=== PATIENT | male | born 1990 | race Caucasian/White ===

== ENCOUNTER 2016-05-11 10:04 | Observation (INO) | payer BC, OTHER ==
[2016-05-11] MEDS ORDERED: LEVOFLOXACIN 750MG/150ML D5W 150 ML IV ONE ×2 (10:22→10:26)
--- NOTE | 2016-05-11 10:25 | ERPHSYRPT ---
- History of Present Illness Time Seen by Provider: 05/11/16 10:23 Source: patient Exam Limitations: no limitations Patient Subjective Stated Complaint: abscess on tailbone Triage Nursing Assessment: patient has 3 cm wide by 5 cm long abscess on tailbone in crevice of cheeks on right side Physician History: abscess in mid area of tail bone for 3 days Timing/Duration: day(s) (3) Severity: moderate Associated Symptoms: denies symptoms Allergies/Adverse Reactions: No Known Drug Allergies Allergy (Unverified 05/11/16 10:21) Hx Tetanus, Diphtheria Vaccination/Date Given: No Hx Influenza Vaccination/Date Given: No Hx Pneumococcal Vaccination/Date Given: No Immunizations Up to Date: No - Review of Systems Constitutional: No Symptoms Eyes: No Symptoms Ears, Nose, & Throat: No Symptoms Respiratory: No Symptoms Skin: Cellulitis - Past Medical History Pertinent Past Medical History: No - Past Surgical History Past Surgical History: No - Social History Smoking Status: Current every day smoker Drug Use: none - Nursing Vital Signs Nursing Vital Signs: Initial Vital Signs Temperature 97.6 F Temperature Source Oral Pulse Rate 78 Respiratory Rate 20 Blood Pressure [Left Arm] 136/84 Pain Intensity 8 - Physical Exam General Appearance: no apparent distress, alert Eye Exam: PERRL/EOMI, eyes nml inspection Ears, Nose, Throat Exam: normal ENT inspection, TMs normal, pharynx normal, moist mucous membranes Neck Exam: normal inspection, non-tender, supple, full range of motion Respiratory Exam: normal breath sounds, lungs clear, No respiratory distress Cardiovascular Exam: regular rate/rhythm, normal heart sounds, normal peripheral pulses Gastrointestinal/Abdomen Exam: soft, normal bowel sounds, No tenderness, No mass Back Exam: normal inspection, normal range of motion, No CVA tenderness, No vertebral tenderness Extremity Exam: normal inspection, normal range of motion, pelvis stable Neurologic Exam: alert, oriented x 3, cooperative, normal mood/affect, nml cerebellar function, nml station & gait, sensation nml, No motor deficits Skin Exam: normal color, warm, dry, other (5x5 cms sacrococcygeal abscess ), No rash Lymphatic Exam: No adenopathy SpO2: 96 Oxygen Delivery: Room Air - Course Nursing assessment & vital signs reviewed: Yes Ordered Tests: Active Orders 24 hr Category Date Time Status IV Insertion STAT Care 05/11/16 10:22 Active BLOOD CULTURE Stat Lab 05/11/16 10:40 Received CBC W DIFF Stat Lab 05/11/16 10:30 Completed CMP Stat Lab 05/11/16 10:30 Received Transfer Order Routine Transfer 05/11/16 10:35 Ordered Medication Summary Generic Name Dose Route Start Last Admin Trade Name Gunnar PRN Reason Stop Dose Admin Levofloxacin/Dextrose 150 mls @ 100 mls/hr 05/11/16 10:22 05/11/16 10:26 Levofloxacin 750mg/150ml D5w IV 05/11/16 11:51 100 mls/hr STAT ONE Administration Discontinued Medications Generic Name Dose Route Start Last Admin Trade Name Gunnar PRN Reason Stop Dose Admin Levofloxacin/Dextrose Confirm 05/11/16 10:26 Levofloxacin 750mg/150ml D5w Administered 05/11/16 10:27 Dose 150 mls @ ud IV .STK-MED ONE Lab/Rad Data: Laboratory Result Diagrams 05/11/16 10:30 Laboratory Results 05/11/16 Range/Units 10:30 WBC 9.4 (4.0-10.5) K/mm3 RBC 4.96 (4.1-5.6) M/mm3 Hgb 14.8 (12.5-18.0) gm/dl Hct 43.1 (42-50) % MCV 86.9 (78-100) fl MCH 29.8 (26-32) pg MCHC 34.3 (32-36) g/dl RDW 13.1 (11.5-14.0) % Plt Count 194 (150-450) K/mm3 MPV 8.9 (6-9.5) fl Gran % 71.2 H (36.0-66.0) % Lymphocytes % 21.5 L (24.0-44.0) % Monocytes % 5.8 (0.0-12.0) % Eosinophils % 1.3 (0.00-5.0) % Basophils % 0.2 (0.0-0.4) % Basophils # 0.02 (0-0.4) - Progress Progress: unchanged, pain not gone completely Discussed with Dr.: Rossy South Will see patient in: hospital (observation) Counseled pt/family regarding: lab results, diagnosis, need for follow-up - Departure Time of Disposition: 10:34 Departure Disposition: Observation Clinical Impression: Pilonidal abscess of cleft Condition: Fair Critical Care Time: Yes Critical Care Time(excluding separately billable procedures): 30-74 minutes Referrals: STEVEN VALVERDE MD [Primary Care Provider] -
[2016-05-11 10:41] LABS: BASOPHIL % 0.2 % (0.0-0.4); Eosinophil % 1.3 % (0.00-5.0); Granulocytes % 71.2 % (36.0-66.0); Lymphocytes % 21.5 % (24.0-44.0); Mean Cell Volume 86.9 fl (78-100); Mean Corpuscular Hemoglobin 29.8 pg (26-32); Mean Platelet Volume 8.9 fl (6-9.5); Monocytes % 5.8 % (0.0-12.0); Platelet Count 194 K/mm3 (150-450); Red Blood Count 4.96 M/mm3 (4.1-5.6); Red Cell Distribution Width 13.1 % (11.5-14.0); White Blood Count 9.4 K/mm3 (4.0-10.5)
[2016-05-11 11:01] LABS: ALBUMIN 3.9 g/dL (3.4-5.0); ALKALINE PHOSPHATASE 91 U/L (46-116); ANION GAP 17.1 MEQ/L (5-15); BILIRUBIN,TOTAL 1.1 mg/dL (0.2-1.0); BLOOD UREA NITROGEN 14 mg/dL (9-20); CHLORIDE 105 mEq/L (98-107); Carbon Dioxide 24.6 mEq/L (21-32); Glucose 115 MG/DL (70-110); Potassium 4.1 mEq/L (3.5-5.1); SGOT/AST 18 U/L (15-37); SGPT/ALT 23 U/L (12-78); SODIUM 143 mEq/L (136-145); Total Protein 7.2 gm/dL (6.4-8.2)
[2016-05-11] MEDS ORDERED: TYLENOL 325 MG PO PRN (11:08)
[2016-05-11] MEDS ORDERED: MOTRIN 600 MG PO PRN (11:08)
[2016-05-11] MEDS ORDERED: SUBLIMAZE 100 MCG/2 ML IV ONE (13:24)
[2016-05-11] MEDS ORDERED: Zofran 4 MG/2 ML VIAL IV ONE (13:24)
[2016-05-11] MEDS ORDERED: DILAUDID 2 MG INJECTION IV ONE (13:24)
[2016-05-11] MEDS ORDERED: TORAdol 30 mg Injection IV ONE (13:24)
[2016-05-11] MEDS ORDERED: Decadron 4 MG INJ IV ONE (13:24)
[2016-05-11] MEDS ORDERED: ATROPINE SULFATE 1MG IV ONE (13:24)
[2016-05-11] MEDS ORDERED: DIPRIVAN 200 MG/20 ML IV ONE (13:24)
[2016-05-11] MEDS ORDERED: Lactated Ringers 1,000 ML IV ONE ×2 (14:14→16:29)
--- NOTE | 2016-05-11 16:09 | PCM.SSS ---
History of Present Illness - Chief Complaint Chief Complaint: cellulitis History of Present Illness: is a 25 year old male who started having buttock pain 6 days ago. He started treating with a lotion he had from a pilonidal cyst 2 years ago, but when it did not improve he came to today. They did an I&D and it has been draining somewhat, but he was in so much pain he was sent to ER and admitted for surgical I&D. No fever. sylvia po (currently NPO for surgery). - Review of Systems Respiratory: Cough (few weeks ago, resolved) Genitourinary Symptoms: Other (pain and swelling at proximal gluteal cleft) Skin: Cellulitis Psychological: Other (would really like a cigarette), No Suicidal Ideations Medications & Allergies Home Medications: Home Medication List No Reportable Medications [No Reported Medications] 05/11/16 [History Confirmed 05/11/16] Allergies/Adverse Reactions: Allergies Allergy/AdvReac Type Severity Reaction Status Date / Time No Known Drug Allergies Allergy Unverified 05/11/16 10:21 - Past Medical History Past Medical History: No Neurological History: No Pertinent History ENT History: No Pertinent History Cardiac History: No Pertinent History Respiratory History: No Pertinent History Endocrine Medical History: No Pertinent History Musculoskelatal History: No Pertinent History GI Medical History: No Pertinent History History: No Pertinent History Pyscho-Social History: No Pertinent History Male Reproductive Disorders: No Pertinent History - Past Surgical History Past Surgical History: No Neuro Surgical History: No Pertinent History Cardiac History: No Pertinent History Respiratory Surgery: No Pertinent History GI Surgical History: No Pertinent History Genitourinary Surgical Hx: No Pertinent History Musculskeletal Surgical Hx: No Pertinent History Male Surgical History: No Pertinent History Other Surgical History: pt states he has had wisdom teeth removed, this is his only surgery - Social History Smoking Status: Current every day smoker How long have you smoked: 15 yrs Exposure to second hand smoke: No Alcohol: Occasionally Drug Use: none - Physical Exam Vital Signs: Vital Signs - 24 hr Temp Pulse Resp BP BP Pulse Ox 05/11/16 15:40 97.6 F 74 18 139/82 96 05/11/16 11:31 96 05/11/16 11:09 97.6 F 74 18 139/82 97 05/11/16 11:00 96 01/28/17 10:51 96 05/11/16 10:05 97.6 F 78 20 136/84 96 General Appearance: mild distress Neurologic Exam: alert, oriented x 3, cooperative Eye Exam: eyes nml inspection Ears, Nose, Throat Exam: moist mucous membranes Neck Exam: normal inspection, non-tender, No lymphadenopathy Respiratory Exam: normal breath sounds, lungs clear, No crackles/rales, No rhonchi, No wheezing Cardiovascular Exam: regular rate/rhythm, normal heart sounds, No murmur Gastrointestinal/Abdomen Exam: soft, normal bowel sounds, No tenderness, No distention, No guarding Rectal Exam: other (superior gluteal cleft (gentle, limited exam) on the R s/p I &D, some purple discoloration, no overt induration or fluctuance, pt is very tender) Back Exam: normal inspection Extremity Exam: No pedal edema, No swelling Skin Exam: warm, dry Assessment/Plan (1) Pilonidal abscess Current Visit: Yes Status: Acute Assessment & Plan: surgery to evaluate, thank you! Likely home after I&D. Code(s): L05.01 - PILONIDAL CYST WITH ABSCESS (2) Tobacco abuse Current Visit: Yes Status: Acute Assessment & Plan: I offered nicotine patch but he defers. Code(s): Z72.0 - TOBACCO USE Hospital Summary - Hospital Course Hospital Course: Pt admitted through ER with pilonidal cyst. Surgery is consulted; if I&D done I assume he will be discharged soon after. - Vitals & Intake/Output Vital Signs: Vital Signs Temperature 97.6 F 05/11/16 15:40 Pulse Rate 74 05/11/16 15:40 Respiratory Rate 18 05/11/16 15:40 Blood Pressure 139/82 05/11/16 15:40 O2 Sat by Pulse Oximetry 96 05/11/16 15:40 Intake & Output: Intake & Output 05/09/16 05/10/16 05/11/16 05/12/16 11:59 11:59 11:59 11:59 Weight 120.656 kg 120.656 kg - Lab Result Diagrams: 05/11/16 10:30 05/11/16 10:30 - Procedures and Test Procedures and Tests throughout Hospitalization: Therapy Orders & Screens 05/11/16 12:06 PT Screen per Nursing Assess ONCE Comment: Protocol Order Physician Instructions: Greater than 3 points order PT Admission Screenin Reason For Exam: Triggered on Admission Diagnosis: cellulitis Open Wound/Cellutlitis/Pressure Ulcers: Yes Acute Fx/ORIF/Change in wt bearing status: No Severe MUSCULOSKELETAL pain: No ADL Dysfunction: No Acute CVA w/Hemiparesis/Hemiplegia: No Decreased Functional Mobility/Strength: No Sprain/Strain: No Acute Post-op Mobility Dysfunction: No Total Points: 5 Smoking Cessation Education ONCE Comment: Diagnosis: cellulitis Smoking Status: Current every day smoker How long have you smoked: 15 yrs Have you smoked in the past 12 months: Yes Approximately how many cigarettes per day: 10 Do you dip or chew tobacco: Yes - Discharge Disposition: Home, Self-Care Condition: Good Prescriptions: No Action No Reportable Medications [No Reported Medications] Follow up with: STEVEN VALVERDE MD [Primary Care Provider] - Forms: Patient Portal Information
[2016-05-11] MEDS ORDERED: BICITRA 30 ML CUP ONE (16:29)
[2016-05-11] MEDS ORDERED: Pepcid 20 MG VIAL IV ONE ×2 (16:29→16:31)
[2016-05-11] MEDS ORDERED: CEFAZOLIN 2 GM-D5W BAG** 50 ML IV ONE (16:29)
[2016-05-11] MEDS ORDERED: BICITRA 30 ML CUP PO STA (16:31)
[2016-05-11] MEDS ORDERED: Lactated Ringers 1,000 ML IV SCH (17:00)
[2016-05-11] MEDS ORDERED: FEVERALL 650 MG PR PRN (18:16)
[2016-05-11] MEDS ORDERED: Zofran 4 MG/2 ML VIAL IVIM PRN (18:18)
[2016-05-11] MEDS: Morphine PCA 1 MG/ML 30 ML IV PRN (18:26)
[2016-05-12 06:23] LABS: Mean Cell Volume 88.3 fl (78-100); Mean Corpuscular Hemoglobin 29.6 pg (26-32); Mean Platelet Volume 9.1 fl (6-9.5); Platelet Count 252 K/mm3 (150-450); Red Blood Count 4.97 M/mm3 (4.1-5.6); Red Cell Distribution Width 13.1 % (11.5-14.0); White Blood Count 11.8 K/mm3 (4.0-10.5)
[2016-05-12] MEDS: Levofloxacin 500MG/100ML D5W 100 ML IV SCH (09:59)
[2016-05-12] MEDS ORDERED: ENOXAPARIN SODIUM SQ SCH (10:00)
[2016-05-12] MEDS: NORCO 5/325 MG PO PRN ×2 (12:22→21:51)
[2016-05-12] MEDS: Morphine PCA 1 MG/ML 30 ML IV PRN (12:29)
--- NOTE | 2016-05-12 13:12 | PCM.DS ---
Discharge Summary Date of Admission: 05/11/16 11:00 Admitting Physician: BEVERLY DE LA TORRE Primary Care Provider: STEVEN VALVERDE Allergies Allergies No Known Drug Allergies Allergy (Unverified 05/11/16 10:21) Hospital Summary - Hospital Course Hospital Course: Pt feeling better, decreased pain. I&D done, packing applied so pt was kept overnight by surgery. Aniya po fine. - Vitals & Intake/Output Vital Signs: Vital Signs Temperature 98.1 F 05/12/16 12:22 Pulse Rate 62 05/12/16 07:50 Respiratory Rate 18 05/12/16 07:50 Blood Pressure 152/69 05/12/16 07:37 O2 Sat by Pulse Oximetry 97 05/12/16 12:29 Intake & Output: Intake & Output 05/10/16 05/11/16 05/12/16 05/13/16 11:59 11:59 11:59 11:59 Intake Total 1884 Output Total 500 Balance 1384 Weight 120.656 kg 120.656 kg - Lab Result Diagrams: 05/12/16 05:30 05/11/16 10:30 Lab Results-Last 24 Hrs: Lab Results-Last 24 Hours 05/12/16 Range/Units 05:30 WBC 11.8 H (4.0-10.5) K/mm3 RBC 4.97 (4.1-5.6) M/mm3 Hgb 14.7 (12.5-18.0) gm/dl Hct 43.9 (42-50) % MCV 88.3 (78-100) fl MCH 29.6 (26-32) pg MCHC 33.5 (32-36) g/dl RDW 13.1 (11.5-14.0) % Plt Count 252 (150-450) K/mm3 MPV 9.1 (6-9.5) fl Micro Results-Entire Visit: Microbiology 05/11/16 17:16 Gram Stain - Final Coccyx - Procedures and Test Procedures and Tests throughout Hospitalization: Therapy Orders & Screens 05/11/16 12:06 PT Screen per Nursing Assess ONCE Comment: Protocol Order Physician Instructions: Greater than 3 points order PT Admission Screenin Reason For Exam: Triggered on Admission Diagnosis: cellulitis Open Wound/Cellutlitis/Pressure Ulcers: Yes Acute Fx/ORIF/Change in wt bearing status: No Severe MUSCULOSKELETAL pain: No ADL Dysfunction: No Acute CVA w/Hemiparesis/Hemiplegia: No Decreased Functional Mobility/Strength: No Sprain/Strain: No Acute Post-op Mobility Dysfunction: No Total Points: 5 Smoking Cessation Education ONCE Comment: Diagnosis: cellulitis Smoking Status: Current every day smoker How long have you smoked: 15 yrs Have you smoked in the past 12 months: Yes Approximately how many cigarettes per day: 10 Do you dip or chew tobacco: Yes 05/11/16 18:11 Incentive Spirometry Assessmen TID Comment: Diagnosis: cellulitis Discharge Exam General Appearance: no apparent distress Neurologic Exam: alert, oriented x 3, cooperative Skin Exam: normal color, warm, dry Respiratory Exam: normal breath sounds, lungs clear, No wheezing Cardiovascular Exam: regular rate/rhythm, normal heart sounds Rectal Exam: other (superior gluteal cleft with minimal induration and tenderness. Packing in place with evidence of bloody and serous fluid. no erythema. Basically nttp.) Final Diagnosis/Problem List - Final Discharge Diagnosis/Problem (1) Pilonidal abscess Current Visit: Yes Status: Acute Assessment & Plan: I&D from surgery yesterday. Packing in place; surgery to re-eval today. OK to d/c from my perspective when OK with surgery. (2) Tobacco abuse Current Visit: Yes Status: Chronic Assessment & Plan: pt refusing nicotine patch. - Discharge Disposition: Home, Self-Care Condition: Good Prescriptions: No Action No Reportable Medications [No Reported Medications] Follow up with: STEVEN VALVERDE MD [Primary Care Provider] - Forms: Patient Portal Information
[2016-05-13] MEDS: NORCO 5/325 MG PO PRN ×2 (04:16→09:19)
--- NOTE | 2016-05-13 07:31 | PCM.NOTE ---
Date and Time: 05/13/16728 Subjective Assessment: patient is feeling much better today, had significant bleeding from surgical site yesterday, has improved today. his pain is controlled, overall he has no complaints Objective Exam General Appearance: no apparent distress, alert Respiratory Exam: normal breath sounds, lungs clear, No respiratory distress Cardiovascular Exam: regular rate/rhythm, normal heart sounds Gastrointestinal/Abdomen Exam: soft, No tenderness, No mass Rectal Exam: other (open area clean, signficant amount of blood in packing and dressing materials, no active bleeding) OBJECTIVE DATA Vital Signs: Vital Signs - 24 hr Temp Pulse Resp BP Pulse Ox 05/13/16 07:11 98.0 F 51 L 16 104/59 97 05/13/16 04:00 98.5 F 52 L 17 131/66 100 05/13/16 00:00 97.9 F 62 17 130/62 95 05/12/16 19:59 97.6 F 74 16 137/79 96 05/12/16 16:00 98.2 F 69 20 127/75 97 05/12/16 12:29 97 05/12/16 12:22 98.1 F 05/12/16 12:00 98.1 F 84 19 125/73 95 05/12/16 10:00 97 05/12/16 08:00 97 05/12/16 07:50 62 18 97 05/12/16 07:37 98.1 F 88 18 152/69 97 Pain Assessment - Last Documented Pain Intensity 5 Pain Scale Used [facility] Intake and Output: Intake & Output 05/10/16 05/11/16 05/12/16 05/13/16 11:59 11:59 11:59 11:59 Intake Total 1884 780 Output Total 500 Balance 1384 780 Weight 120.656 kg 120.656 kg Assessment/Plan (1) Pilonidal abscess Current Visit: Yes Status: Acute Assessment & Plan: on levaquin, will stop lovenox at this time and continue current management, patient is ambulatory so encouraged activity to prevent DVT Code(s): L05.01 - PILONIDAL CYST WITH ABSCESS
--- NOTE | 2016-05-13 09:03 | OP ---
SURGERY DATE/TIME: 05/11/20161651 PREOPERATIVE DIAGNOSIS: Pilonidal cyst disease acute exacerbation upper right. POSTOPERATIVE DIAGNOSIS: Pilonidal cyst disease acute exacerbation upper right. PROCEDURE: Excisional of pilonidal cyst disease measuring 3 x 2 inches predominantly central and right in the upper aspect of the pilonidal zone with open packing. SURGEON: Gabe Varghese M.D. ANESTHESIA: General. COMPLICATIONS: None. CONDITION: Stable. INDICATION: A 25 year-old had pilonidal cyst before and had treatment of it about two years ago, I believe complete excision. He now presents for exacerbation that has been going on and off for a month. He had it lanced at [facility] but it is still very, very painful. He cannot move or lay on it and it is still acutely inflamed. DESCRIPTION OF PROCEDURE: He was taken to surgery and laid in left lateral decubitus position. This worked out very nicely. Routine prep and drape. It was extending in the upper part of the old pilonidal zone and in the central and expansion out to the right. This was elliptically excised. Hemostasis obtained with electrocautery. Residual granulation tissue was cauterized and packed with Iodoform. Sterile dressing applied. The patient tolerated the procedure satisfactorily. Findings discussed with the family in the waiting room.
[2016-05-13] MEDS: Levofloxacin 500MG/100ML D5W 100 ML IV SCH (10:11)
[2016-05-13 12:31] VITALS: BP 134/85; PULSE 81; O2SAT 94
== END 2016-05-13 13:25 | disposition home or self-care (01) ==
LOC: ED 10:04 → MED SURG 11:00
PROVIDERS: ADMIT Family Medicine; ATTEND Family Medicine
PROC: 0HB8XZZ Excision of Buttock Skin, External Approach (ICD-10-PCS; principal; 2016-05-11)
DX: L05.01 Pilonidal cyst with abscess (principal); Z72.0 Tobacco use
CPT/HCPCS: 00300; 36000; 36415; 80053; 85025; 85027; 87040; 87070; 94762; 99140; 99284; G0378; J0461; J0690; J1100; J1170; J1650; J1885; J1956; J2270; J2405; J2704; J3010

== ENCOUNTER 2022-11-04 07:41 | Emergency (ER) | payer BC, SELFPAY ==
[2022-11-04] MEDS ORDERED: BABY ASPIRIN 81 MG CHEW PO ONE (07:54)
[2022-11-04 07:57] VITALS: O2SAT 98
[2022-11-04 07:59] VITALS: TEMP 97.5
[2022-11-04] MEDS ORDERED: BABY ASPIRIN 81 MG CHEW ONE (07:59)
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
[2022-11-04 08:05] LABS: Absolute Neutrophil Ct (ANC) 6.07 x10^3/uL (1.4-6.9); BASOPHIL % 0.7 % (0.0-0.4); Basophil (Absolute #) 0.07 x10^3/uL (0-0.4); Eosinophil % 3.2 % (0.00-5.0); Eosinophil (Absolute #) 0.31 x10^3/uL (0-0.5); Hematocrit 43.1 % (42-50); Hemoglobin 14.4 g/dL (12.5-18.0); IMMATURE GRAN # 0.05 x10^3u/L (0.00-0.03); IMMATURE GRAN % 0.5 % (0.00-0.4); Lymphocyte (Absolute #) 2.66 x10^3/uL (1.0-4.6); Lymphocytes % 27.7 % (24.0-44.0); Mean Cell Volume 93.9 fL (78-100); Mean Corpuscular Hemoglobin 31.4 pg (26-32); Mean Corpuscular Hgb Concent. 33.4 g/dL (32-36); Mean Platelet Volume 8.5 fL (7.5-11.0); Monocyte (Absolute #) 0.43 x10^3/uL (0.0-1.3); Monocytes % 4.5 % (0.0-12.0); Neutrophil % 63.4 % (36.0-66.0); Platelet Count 213 x10^3/uL (150-450); Red Blood Count 4.59 x10^6/uL (4.1-5.6); Red Cell Distribution Width 12.8 % (11.5-14.0); White Blood Count 9.6 x10^3/uL (4.0-10.5)
[2022-11-04 08:37] LABS: ALBUMIN 3.8 g/dL (3.5-5.0); ALKALINE PHOSPHATASE 70 U/L (38-126); ANION GAP 11.2 MEQ/L (5-15); BLOOD UREA NITROGEN 11 mg/dL (9-20); CHLORIDE 106 mmol/L (98-107); CK-Creatinine Phosphokinase 94 U/L (55-170); Calcium 8.4 mg/dL (8.4-10.2); Carbon Dioxide 26 mmol/L (22-30); Creatinine 1 0.68 mg/dL (0.66-1.25); EST GLOMERULAR FILTRATION RATE > 60.0 ML/MIN; Glucose 131 mg/dL (74-106); Potassium 4.5 mmol/L (3.5-5.1); SGOT/AST 42 U/L (17-59); SGPT/ALT 27 U/L (0-50); SODIUM 138 mmol/L (137-145); Total Protein 6.6 g/dL (6.3-8.2)
--- NOTE | 2022-11-04 08:47 | XRAY ---
Indication: Chest pain. Comparison: March 12, 2021 Portable apical lordotic chest again demonstrates normal heart, lungs, and bony thorax.
--- NOTE | 2022-11-04 09:07 | XRAY ---
Indication: Chest pain. Multiple contiguous axial images obtained through the chest without contrast. Comparison: None Lungs inflated and clear. Heart not enlarged. Aorta is normal in course and caliber. No pathologic mediastinal lymphadenopathy. Bony thorax intact. Limited upper abdomen including adrenal glands are unremarkable. Impression: Normal CT chest without contrast exam.
[2022-11-04] MEDS: TORAdol 30 mg Injection IV ONE ×2 (09:21→09:28)
[2022-11-04] MEDS ORDERED: TORAdol 30 mg Injection ONE (09:21)
[2022-11-04 09:28] VITALS: BP 126/86; PULSE 70; RESP 18
== END 2022-11-04 09:54 | disposition home or self-care (01) ==
LOC: ED 07:41
DX: R07.9 Chest pain, unspecified (principal); R20.2 Paresthesia of skin; R06.02 Shortness of breath; Z72.0 Tobacco use; Z63.5 Disruption of family by separation and divorce
CPT/HCPCS: 36000; 36415; 71045; 71250; 80053; 82550; 84484; 85025; 85379; 85652; 86140; 93005; 93041; 94760; 99284; J1885; A9270-GY